=== PATIENT | male | born 1990 | race Caucasian/White ===

== ENCOUNTER 2022-04-12 10:18 | Emergency (ER) | payer SELFPAY ==
[~2022-04-12] VITALS: Ht 180 cm; Wt 81.0 kg
[2022-04-12 10:45] VITALS: BP 147/99
[2022-04-12] MEDS ORDERED: ACHD5005 PO (11:01)
[2022-04-12] MEDS ORDERED: PRD20T PO ×2 (11:01→11:39)
[2022-04-12] MEDS ORDERED: VALA10007 PO ×2 (11:01→11:39)
--- NOTE | 2022-04-12 11:01 | ED Integumentary General ---
General Chief Complaint: Skin/Wound Problems Stated Complaint: RASH ON RIGHT ARM / NECK Source: patient Exam Limitations: no limitations History of Present Illness Date Seen by Provider: April 12, 2022 Time Seen by Provider: 10:55 Initial Comments To ER with a 4 to 5-day history of a painful burning rash on his right scapula that radiates down the right arm. No other symptoms. No history of this. Timing/Duration: week Severity: moderate Associated Symptoms: denies symptoms Allergies and Home Medications Patient Home Medication List Home Medication List Reviewed: Yes Review of Systems Review of Systems Constitutional: see HPI EENTM: see HPI Respiratory: no symptoms reported Cardiovascular: no symptoms reported Genitourinary: no symptoms reported Skin: see HPI Psychiatric/Neurological: No Symptoms Reported Endocrine: No Symptoms Reported Past [id number] Hx Patient Social History Tobacco Use?: Yes Tobacco type used: Cigarettes Smoking Status: Current Everyday Smoker Use of E-Cig and/or Vaping dev: No Substance use?: No Alcohol Use?: No Pt feels they are or have been: No Physical Exam Vital Signs Capillary Refill : General Appearance: WD/WN, no apparent distress Neck: non-tender, full range of motion Respiratory: normal breath sounds, no respiratory distress, no accessory muscle use Gastrointestinal: normal bowel sounds, non tender Back: other (There is an erythematous papulovesicular rash to the upper back that does not cross the midline. This starts at about the C5-C6 dermatome and these clusters of papulovesicular lesions occur down the shoulder over the lateral upper arm and then volar aspect of the forearm.) Extremities: normal range of motion, non-tender Neurologic/Psychiatric: alert, normal mood/affect, oriented x 3 Skin: normal color, warm/dry Skin Problem Location: upper extremities Departure Communication (Admissions) This follows the C5-C6 dermatome Impression Primary Impression: Herpes zoster Disposition: 01 HOME, SELF-CARE Condition: Stable Departure-Patient Inst. Decision time for Depature: 10:59 Referrals: NO,LOCAL PHYSICIAN (PCP/Family) Primary Care Physician Patient Instructions: Shingles (DC) Add. Discharge Instructions: Consider self contagious and capable of spreading this to unvaccinated individuals, individuals who have not had chickenpox and women until the blisters have crusted over. It will take about 2 to 3 weeks for this to go away. All discharge instructions reviewed with patient and/or family. Voiced understanding. Scripts Hydrocodone/Acetaminophen (Hydrocodone-Acetamin 5-325 mg) 5 Mg-325 Mg Tablet 1 TAB PO Q4H PRN for PAIN-MODERATE (5-7), #14 TAB Prov: TOO PIERCE APRN 04/12/22 Prednisone (Prednisone) 20 Mg Tab 20 MG PO DAILY, #22 TAB Take 3 tabs(60mg)daily,decrease by 1/2 tab(10mg)every other day. Prov: TOO PIERCE APRN 04/12/22 Valacyclovir HCl (Valacyclovir) 1,000 Mg Tablet 1000 MG PO TID, #21 TAB Prov: TOO PIERCE APRN 04/12/22 TOO PIERCE APRN April 12, 2022 11:01
== END 2022-04-12 11:06 | disposition home or self-care (01) ==
LOC: ER 10:20
DX: B02.9 Zoster without complications (principal); F17.210 Nicotine dependence, cigarettes, uncomplicated
CPT/HCPCS: 99281